=== PATIENT | male | born 2000 | race Caucasian/White ===

== ENCOUNTER 2019-04-13 16:13 | Emergency (ER) | payer BC ==
[~2019-04-13] VITALS: Ht 188 cm; Wt 84.1 kg
[~2019-04-13 16:13] MED LIST: AMOXICILLIN 50500 MG PO; NO HOME MEDICATIONS
[2019-04-13 16:32] VITALS: BP 120/70; TEMP 98.3
[2019-04-13 17:15] VITALS: PULSE 62
== END 2019-04-13 17:13 | disposition home or self-care (01) ==
LOC: COL.ER 16:13
DX: S30.861A Insect bite (nonvenomous) of abdominal wall, initial encounter (principal); Z96.22 Myringotomy tube(s) status; Z90.89 Acquired absence of other organs; W57.XXXA Bitten or stung by nonvenomous insect and other nonvenomous arthropods, initial encounter

== ENCOUNTER → 2019-05-28 | Outpatient (CLI) | payer BC | LOC: COL.RAD 13:48 | DX: S43.491A Other sprain of right shoulder joint, initial encounter (principal); M25.811 Other specified joint disorders, right shoulder | CPT/HCPCS: A9585; Q9967 ==